=== PATIENT | male | born 1995 | race American Indian/Alaskan Native ===

== ENCOUNTER 2018-02-14 11:10 | Emergency (ER) | payer MEDICAID, OTHER ==
[2018-02-14 11:26] VITALS: BP 130/85; PULSE 90; RESP 18; TEMP 98.9; O2SAT 100
--- NOTE | 2018-02-14 11:31 | C.PDOC ---
History Of Present Illness Pt was brought to ED by police officers for medical/psych evaluation. Pt was seen on phone, comfortable. In 10 min, pt was missing, eloped from ED department. Pt was called in all areas of ED three times without answer. ELOPED PRIOR MED EVALUATION Time Seen by Provider: 02/14/18 11:15 Chief Complaint (Nursing): Psychiatric Evaluation History Per: EMS Past Medical History Reviewed: Historical Data, Nursing Documentation, Vital Signs Vital Signs: Last Vital Signs Temp 98.9 F 02/14/18 11:18 Pulse 90 02/14/18 11:18 Resp 18 02/14/18 11:18 BP 130/85 02/14/18 11:18 Pulse Ox 100 02/14/18 11:18 - Medical History PMH: HTN Denies: Diabetes, HIV, Seizures, Sexually Transmitted Disease - [facility] DETOXIFICATION SERVICES FOR SUBSTANCE ABUSE TREATMENT (05/18/15) Family History: States: Unknown Family Hx - Social History Hx Tobacco Use: No Hx Alcohol Use: Yes Hx Substance Use: Yes (marijuana/jennifer's) - Immunization History Hx Tetanus Toxoid Vaccination: No Hx Influenza Vaccination: No Hx Pneumococcal Vaccination: No Review Of Systems Review Of Systems: ROS cannot be obtained secondary to pt's inabilty to answer questions. ED Course And Treatment O2 Sat by Pulse Oximetry: 100 Disposition - Disposition Disposition: ELOPEMENT - ER ONLY Disposition Time: 11:31 Condition: STABLE Forms: [facility] ([place]) - Clinical Impression Clinical Impression: Evaluation by medical service required
== END 2018-02-14 11:31 | disposition left against medical advice (07) ==
LOC: C.ER 11:10
DX: Z00.8 Encounter for other general examination (principal); I10 Essential (primary) hypertension